=== PATIENT | female | born 1965 | race African-American/Black ===

== ENCOUNTER → 2017-08-29 | Outpatient (CLI) | payer BC ==
[~2017-08-29] MED LIST: BENEFIBER1 EAC1 PO; Z.0.LEVAQUIN500 MG PO; [UNRECOGNIZED DRUG - OTHER] PO
== END ==
LOC: MAMMO 09:02
PROVIDERS: ATTEND Internal Medicine Medical Oncology
DX: Z12.31 Encounter for screening mammogram for malignant neoplasm of breast (principal)

== ENCOUNTER → 2018-08-26 | Outpatient (CLI) | payer BC | LOC: MAMMO 09:24 | PROVIDERS: ATTEND Internal Medicine Medical Oncology | DX: Z12.31 Encounter for screening mammogram for malignant neoplasm of breast (principal) ==

== ENCOUNTER 2019-04-04 10:06 | Observation (INO) | payer BC ==
[~2019-04-04] VITALS: Ht 160 cm; Wt 78.9 kg
[2019-04-04] MEDS ORDERED: SODIUM CHLORIDE 0.9% 1000ML 1,000 ML IV STA (10:10)
[2019-04-04] MEDS ORDERED: DIAZEPAM INJ 5 MG/ML 2 ML IV ONE ×2 (10:45)
[2019-04-04] MEDS ORDERED: MECLIZINE HCL 12.5 MG TAB PO ONE ×2 (10:45)
[2019-04-04 10:47] LABS: BASOPHILS % 0.4 % (0.0-1.0); EOSINOPHILS % 0.9 % (0.0-6.0); HEMATOCRIT 40.1 % (34.2-44.1); HEMOGLOBIN 12.8 g/dL (12.0-16.0); LYMPHOCYTES # (AUTO) 1.3 (1.0-3.2); LYMPHOCYTES % 29.1 % (18.0-39.1); MEAN CORPUSCULAR HEMOGLOBIN 26.8 pg (28-32); MEAN CORPUSCULAR HGB CONC 31.9 g/dL (31-35); MEAN CORPUSCULAR VOLUME 83.9 fL (81-99); MONOCYTES # (AUTO) 0.4 (0.2-0.8); MONOCYTES % 7.7 % (4.4-11.3); NEUTROPHILS # (AUTO) 2.8 (2.1-6.9); NEUTROPHILS % 61.5 % (38.7-80.0); PLATELET COUNT 166 x10e3/uL (140-360); RED BLOOD COUNT 4.78 x10e6/uL (3.6-5.1); RED CELL DISTRIBUTION WIDTH 14.2 % (11.7-14.4)
[2019-04-04 10:54] LABS: ALANINE AMINOTRANSFERASE 13 IU/L (0-55); ALBUMIN 3.8 g/dL (3.5-5.0); ALBUMIN/GLOBULIN RATIO 1.1 (0.8-2.0); ALKALINE PHOSPHATASE 111 IU/L (40-150); ANION GAP 17.1 mmol/L (8-16); BLOOD UREA NITROGEN 11 mg/dL (7-26); BUN/CREATININE RATIO 13 (6-25); CALCIUM 9.1 mg/dL (8.4-10.2); CARBON DIOXIDE 23 mmol/L (22-29); CHLORIDE 105 mmol/L (98-107); CREATINE KINASE 108 IU/L (29-168); CREATININE, SERUM 0.82 mg/dL (0.57-1.11); EST GLOMERULAR FILTRATION RATE > 60 ML/MIN (60-); GLUCOSE 141 mg/dL (74-118); POTASSIUM 4.1 mmol/L (3.5-5.1); SODIUM 141 mmol/L (136-145)
--- NOTE | 2019-04-04 11:35 | Diagnostic Imaging Report ---
EXAMINATION: Head CT HISTORY: Dizziness 24-hour COMPARISON: None. TECHNIQUE: Multidetector axial images were obtained without contrast from the foramen magnum to the vertex . The images were reconstructed using brain and bone algorithms. Thin section brain images were reformatted into coronal and sagittal planes. Image quality: Motion/streaking artifact limits the evaluation of the skull base and posterior cranial fossa. Dose modulation, iterative reconstruction, and/or weight based adjustment of the mA/kV was utilized to reduce the radiation dose to as low as reasonably achievable. FINDINGS: Parenchyma: 1. No abnormal densities. 2. No mass or hemorrhage. No CT evidence of acute territorial vascular insult. Extra-axial spaces:No abnormal density. No extra-axial fluid collections Brain volume: Normal for age. Ventricles: No hydrocephalus or displacement. Arteries: No density suggestive of thrombus. Dural sinuses: No abnormal density. Extra-axial spaces: No abnormal density. Foramen magnum: No mass, Chiari malformation, or basilar invagination. Sella: Enlarged, partially empty, mostly CSF filled Paranasal/mastoid sinuses: Imaged portions unremarkable. Skull/Scalp: No lytic or blastic lesions. No fractures. IMPRESSION: No intracranial abnormalities. Signed by: Dr. Betty Jaime M.D. on 04/04/2019 11:31 AM
--- NOTE | 2019-04-04 11:51 | Diagnostic Imaging Report ---
EXAMINATION: CHEST SINGLE (PORTABLE) INDICATION: Dizziness, nausea/vomiting. COMPARISON: None FINDINGS: TUBES and LINES: None. LUNGS: Lungs are moderately inflated. There is mild patchy left basilar opacity, likely atelectasis. No evidence of lobar consolidation or pulmonary edema. PLEURA: No pleural effusion or pneumothorax. HEART AND MEDIASTINUM: The cardiomediastinal silhouette is unremarkable. BONES AND SOFT TISSUES: No acute osseous lesion. Soft tissues are unremarkable. UPPER ABDOMEN: No free air under the diaphragm. IMPRESSION: No acute radiographic abnormality. Signed by: Dr. Afshan Cueva MD on 04/04/2019 11:48 AM
--- NOTE | 2019-04-04 13:17 | NUR ---
H&P cc: intractable N/V and dizziness HPI 53yoF, PCP , developed intractable N/V and room spinning for 1 week. Went to PCP, given antibiotics for post nasal drip, now worsening symptoms, unable to open eyes due to severe dizziness/nausea PMH: breast CA dx 2011 s/p left mastectomy and chemo PSH; left mastectomy, hysterectomy Allergies; see emr FH/SH; ; no cig/etoh meds; see MAR ROS: no f/c/s/BERKOWITZ/cp/sob/leg pain'/skin rash/diarrhea v/s; revd PE tired appearing atraumatic ns1s2 mod bs soft nt nd no e/t skin dry flat affect a&ox3; ignacio labs/med revd A/P: 53yoF BPPV Intactable N/V Hx breast cancer Elevated BP Hyperglycemia Obesity BMI 30.8 PLAN Meclizine and fluids hba1c/lipids scd/pepcid f/u MRI brain Monitor BP Hayes Crenshaw MD, PhD.
[2019-04-04 13:37] LABS: CHOL/HDL RATIO 2.7 (3.0-3.6)
[2019-04-04] MEDS ORDERED: HYDRALAZINE HCL 20 MG/ML VIAL IV PRN (14:00)
[2019-04-04 14:45] VITALS: BP 136/75
--- NOTE | 2019-04-04 14:46 | NUR ---
PT TO THE FLOOR AT THIS TIME. PT DENIES NEEDS AT THIS TIME.
[2019-04-04 15:00] VITALS: BP 136/75
[2019-04-04] MEDS: MECLIZINE HCL 12.5 MG TAB PO SCH ×2 (15:33→21:47)
[2019-04-04] MEDS: SODIUM CHLORIDE 0.9% 1000ML 1,000 ML IV SCH (15:33)
[2019-04-04 16:38] VITALS: BP 161/93
[2019-04-04] MEDS ORDERED: FAMOTIDINE 20 MG/2 ML VIAL IV SCH (17:00)
[2019-04-04] MEDS ORDERED: [UNRECOGNIZED DRUG - REMARK] (18:53)
--- NOTE | 2019-04-04 19:10 | NUR ---
Received the pt from augusta Mccormick in the bed.stable condition.
[2019-04-04 20:57] VITALS: BP 132/80
[2019-04-04 21:00] VITALS: BP 132/80
--- NOTE | 2019-04-04 22:30 | NUR ---
Assessment done.no resp.distress.no pain voiced.ambulates with stand by assistance.had small amount of bowel movement.pt is back to bed safely.iv to right ac is patent.iv fluid running.bed locked and in lowest position.phone and call light within reach.instructed to call for assistance as needed.
[2019-04-05] VITALS: BP 140/90
[2019-04-05] MEDS: SODIUM CHLORIDE 0.9% 1000ML 1,000 ML IV SCH ×3 (00:24→12:38)
[2019-04-05 04:00] VITALS: BP 133/88
[2019-04-05] MEDS: MECLIZINE HCL 12.5 MG TAB PO SCH ×2 (06:22→13:39)
--- NOTE | 2019-04-05 07:00 | NUR ---
RECEIVED PATIENT AWAKE RESTING IN BED NO S/S OF DISTRESS. BED LOW, WHEELS LOCKED, SIDE RAILS X2. CALL LIGHT IN REACH WILL CONTINUE TO MONITOR PATIENT.
--- NOTE | 2019-04-05 07:01 | NUR ---
Bed side shift report given to the on coming Rn.stable condition.
--- NOTE | 2019-04-05 07:22 | NUR ---
D/C summary Principal Dx: IM- progress note O/N no events ROS: no f/c/s/BERKOWITZ/cp/sob/leg pain'/skin rash/diarrhea v/s; revd PE tired appearing atraumatic ns1s2 mod bs soft nt nd no e/t skin dry flat affect a&ox3; ignacio labs/med revd A/P: 53yoF BPPV Intactable N/V Hx breast cancer Elevated BP Hyperglycemia Obesity BMI 30.8 PLAN Meclizine and fluids hba1c/lipids scd/pepcid f/u MRI brain Monitor BP 04/05 f/u carotid studies; d/c home f/u pcp 1 week stable d'c>35mins Hayes Crenshaw MD, PhD.
--- NOTE | 2019-04-05 07:31 | NUR ---
PATIENTS IV LEAKING. REMOVED IV, CATHETER TIP INTACT AND PRESSURE DRESSING APPLIED.
[2019-04-05 07:42] VITALS: BP 140/87
[2019-04-05] MEDS: FAMOTIDINE 20 MG TAB PO SCH ×2 (08:05→16:12)
[2019-04-05 08:21] VITALS: BP 140/87
[2019-04-05 11:13] VITALS: BP 123/88
--- NOTE | 2019-04-05 13:44 | NUR ---
PATIENT LEFT TO RADIOLOGY AT THIS TIME VIA WHEELCHAIR
--- NOTE | 2019-04-05 14:15 | NUR ---
PATIENT BACK FROM RADIOLOGY AT THIS TIME
--- NOTE | 2019-04-05 15:03 | Diagnostic Imaging Report ---
MRI BRAIN WO HISTORY: Vertigo COMPARISON: Head CT 04/04/2019 TECHNIQUE: Sagittal T2, axial T2, axial T1, axial T2/FLAIR, axial gradient echo (or susceptibility weighted), coronal T2/FLAIR, and axial diffusion weighted MR images of the brain were obtained without contrast. DISCUSSION: Scalp/bone marrow: Unremarkable. Brain sulci: Appropriate for patient's age. Ventricles: Normal in size and configuration. No hydrocephalus. Extra-axial spaces: No masses or fluid collections. Parenchyma: Scattered T2/FLAIR hyperintense foci throughout the supratentorial white matter are likely chronic microvascular ischemic changes. Otherwise, no mass, hemorrhage, or acute vascular insults. Vessels: Normal flow voids in major arteries and veins. Sellar/Suprasellar region: No abnormalities. Craniocervical junction: Partially empty sella. Incidental findings: Small bilateral maxillary sinus retention cysts, left greater than right. IMPRESSION: 1. No acute intracranial abnormalities. 2. Mild supratentorial chronic microvascular ischemic change. Signed by: Dr. Damon Salgado M.D. on 04/05/2019 3:00 PM
[2019-04-05 15:33] VITALS: BP 175/99
[2019-04-05] MEDS ORDERED: METOPROLOL SUCCINATE 25 MG TAB XL PO NR (16:30)
[2019-04-05] MEDS ORDERED: MECLIZINE HCL12.5 MG PO (17:52)
--- NOTE | 2019-04-05 18:10 | NUR ---
PATIENT CLEARED BY DR. ZUÑIGA FOR DISCHARGE.
--- NOTE | 2019-04-05 18:30 | NUR ---
PATIENT DISCHARGED FROM FACILITY. PATIENT GATHERED ALL PERSONAL BELONGINGS, DISCHARGE INSTRUCTIONS, AND FOLLOW UP INFORMATION. PATIENT LEFT UNIT IN WHEELCHAIR AND WENT HOME VIA PRIVATE AUTO. NO SIGNS OF DISTRESS WHEN LEAVING FACILITY.
--- NOTE | 2019-04-06 00:58 | Consultation ---
DATE OF CONSULTATION: 04/05/2019 Neurology Consult Note HISTORY OF PRESENT ILLNESS: Ms. Reeder is a 53-year-old right-hand dominant woman with past medical history significant for breast cancer, in remission for seven years, admitted to [facility] under observation status on April 04, 2019, with dizziness. Approximately 10 days prior to admission, the patient presented to her primary care physician with symptoms of an upper respiratory infection. Upon general physical examination, the patient was found to have fluid behind both ears. She received an injection of methylprednisolone and was prescribed a 10-day course of amoxicillin, which was completed on the day of admission. On the morning of admission, the patient awoke with severe dizziness, which is further described as a vertiginous sensation. Ms. Reeder does not report blurred vision or other visual disturbance associated with the dizziness. She does report nausea with or without vomiting as well as bilateral tinnitus associated with the dizziness. According to the patient, the dizziness is triggered by movement, especially quick movements. Sitting/lying still improves the dizziness. However, the dizziness does not resolve with sitting/lying still. Ms. Reeder does not report a headache associated with the symptoms. She has not experienced similar symptoms previously. Ms. Reeder presented to the emergency center at [facility] on April 04, 2019, for evaluation of the above described symptoms. Upon arrival in the emergency center, the patient was afebrile with a blood pressure of 148/89 mmHg and a pulse of 61 beats per minute. The patient's neurological examination is not available for review at present. A CT of the brain without contrast was performed while the patient was in the emergency center. This study did not reveal evidence of recent large territorial ischemia or hemorrhage. Ms. Reeder was subsequently admitted to [facility] under observation status for further evaluation and treatment of her symptoms. While hospitalized, Ms. Reeder has received meclizine 25 mg by mouth every 8 hours. The patient does report mild to moderate improvement of her symptoms with this medication. REVIEW OF SYSTEMS: Nausea, vomiting, tinnitus, dizziness which is further described as a vertiginous sensation. Otherwise, a 12-point review of systems is negative. PAST MEDICAL HISTORY: Breast cancer, status post left mastectomy and chemotherapy, in remission for seven years. PAST SURGICAL HISTORY: Total hysterectomy, left ACL repair, left breast mastectomy. PAST HOSPITALIZATIONS: Surgeries/procedures as listed, allergic reaction to antibiotic, childbirth. FAMILY MEDICAL HISTORY: Hypertension, diabetes mellitus, and heart disease. SOCIAL HISTORY: Ms. Reeder is . She works for [employer]. The patient does not report current or prior tobacco, alcohol, or recreational drug use. HOME MEDICATIONS: None. HOSPITAL MEDICATIONS: Pepcid, hydralazine, and meclizine. ALLERGIES: ASPIRIN, CLINDAMYCIN, BACTRIM, VALIUM. NO KNOWN FOOD ALLERGIES. NO KNOWN ALLERGIES TO LATEX. NO KNOWN ALLERGIES TO IODINE OR OTHER CONTRAST MATERIALS. PHYSICAL EXAMINATION: VITAL SIGNS: Height 63 inches, weight 174 pounds, BMI 30.8 kg/m2, blood pressure 175/99 mmHg, pulse 72 beats per minute, respiratory rate 19 breaths per minute, and oxygen saturation 95% on room air. GENERAL: The patient is awake and alert, does not appear distressed. Obese. HEENT: Normocephalic, atraumatic. Pupils are equal, round, and reactive to light. Moist mucous membranes. A small amount of fluid is observed behind both tympanic membranes. NECK: Supple. No appreciable thyromegaly. No appreciable carotid bruits. CARDIOVASCULAR: S1, S2, regular rate and rhythm. No murmurs, rubs, or gallops. RESPIRATORY: Clear to auscultation bilaterally. No wheezes, rhonchi, or rales. EXTREMITIES: The skin is warm and dry. No clubbing, cyanosis, or edema. The posterior tibial and dorsalis pedis pulses are 2+ and symmetric. SKIN: No rashes or lesions. Negative bilateral Holland-Hallpike maneuvers. NEUROLOGIC: Memory/Attention: The patient is awake and alert, oriented to person, place, time, and situation. Cranial Nerves: Cranial nerve I - not tested. Cranial nerve II, III, IV, and - pupils are equal and round, react briskly to light (from 4 mm to 2 mm). Extraocular movements intact. No nystagmus. Cranial nerve V - sensation to light touch and pinprick is intact in the bilateral V1 through V3 distributions. Strength in the temporalis and masseter muscles is within normal limits. Cranial nerve VII - the face is symmetric as are all facial movements. Strength is within normal limits. Cranial nerve VIII - hearing is intact to finger rub bilaterally. Cranial nerve IX, X - the soft palate elevates equally and symmetrically. Cranial nerve XI - normal strength of the bilateral sternocleidomastoid and trapezius muscles. Cranial nerve XII - the tongue protrudes midline and moves symmetrically from qtvt-mr-byvu. Strength: Bulk is normal. Strength is 5/5 in the bilateral deltoids, biceps, triceps, wrist flexors and extensors, finger flexors and extensors, intrinsic hand muscles, hip flexors, knee flexors and extensors, ankle dorsiflexion and plantar flexion, and intrinsic foot muscles. Tone is normal. DTRs: Deep tendon reflexes are 2+ and symmetric at the triceps, biceps, brachioradialis, patellas, and Achilles. Plantar responses are flexor bilaterally. Sensation: Sensation is intact to light touch and pinprick in both arms and both legs. Cerebellar: Ezwtda-wmra-gthjxw and heel-osuna movements are intact without dysmetria or other impairment. Gait: Deferred. Speech: Spontaneous speech is normal without appreciable dysarthria or aphasia. Repetition is intact. Involuntary movements: None. Pronator Drift: None. LABORATORY DATA: A comprehensive metabolic panel is significant for an elevated serum glucose of 141 and a globulin of 3.6. Total cholesterol 182, triglycerides 47, LDL cholesterol 105, HDL cholesterol 68. B-natriuretic peptide 30.6. Hemoglobin A1c 5.8. The CBC with differential and platelets is unremarkable. A quantitative D-dimer is 310. DIAGNOSTIC STUDIES: Electrocardiogram on 04/04/2019: Sinus bradycardia set at 57 beats per minute. Chest x-ray on 04/04/2019: No acute radiographic abnormality. CT of the brain without contrast on 04/04/2019: On my review, there is no evidence of recent or remote large territorial ischemia, hemorrhage, mass, or mass effect. Cerebral volumes are appropriate for age. There are no findings suggestive of chronic small vessel ischemic disease. Bilateral carotid artery ultrasound with Doppler on 04/04/2019: There is no atherosclerosis in either carotid artery system. However, vessels are noted to be tortuous. Flow is antegrade in the bilateral vertebral arteries. Echocardiogram on 04/05/2019: Ejection fraction 65% to 70%. No significant valvular abnormalities are noted. MRI of the brain without contrast on 04/05/2019: On my review, there is no evidence of recent or remote large territorial ischemia, hemorrhage, mass, or mass effect. Cerebral volumes are appropriate for age. There are scattered nonspecific T2/FLAIR hyperintense foci throughout the supratentorial white matter compatible with mild chronic small vessel ischemic disease. ASSESSMENT AND PLAN: Ms. Redeer is a 53-year-old right-hand dominant woman with past medical history significant for left breast cancer, in remission for seven years, admitted to [facility] under observation status on April 04, 2019, with vertigo, nausea, vomiting, and bilateral tinnitus. The patient's neurological examination is nonfocal. Her general physical examination is significant for a small amount of fluid behind both tympanic membranes and negative bilateral Ovidio-Hallpike maneuvers. The patient's laboratory data and other diagnostic studies have been reviewed and are documented above. In my opinion, Ms. Reeder has labyrinthitis. She has received a full course of oral antibiotics for a possible bacterial inner ear infection. If her symptoms are due to a viral infection, they should gradually resolve over the next few days. In the interim, continue treatment with meclizine 25 mg by mouth every 8 hours for symptoms of vertigo and nausea with vomiting. No other diagnostic studies or treatments are recommended. The patient may be discharged to home. Jacque Valenzuela MD CP/TYLER /[id number] MTDD
--- OUTSIDE RECORDS SUMMARY | 2019-04-09 12:21 | XMS REPORT ---
Author Author [facility] Address Unknown Phone Unavailable Care Team Providers Care Coding Consultant Name Role Phone RYAN MAI Unavailable Unavailable ANATOLY OLVERA Unavailable Unavailable Payers Payer Name Policy Type Policy Number Effective Date Expiration Date Problems This patient has no known problems. Allergies, Adverse Reactions, Alerts Allergy Name Allergy Type Status Severity Reaction(s) Onset Date Inactive Date Treating Clinician Comments promethazine HCl DA Active SV 2017-05-17 00:00:00 aspirin DA Active SV 2017-05-17 00:00:00 clindamycin DA Active SV 2017-05-17 00:00:00 sulfamethoxazole DA Active U 2017-05-17 00:00:00 trimethoprim DA Active U 2017-05-17 00:00:00 Medications This patient has no known medications. Results Test Description Test Time Test Comments Text Results Atomic Results Result Comments MRI BRAIN WO 2019-04-05 14:56:00 [place] [address] Patient Name: FARHAD BUI MR #: [id number] : 1965 Age/Sex: 53/F Req #: [id number] Adm Physician: RYAN MAI MD Ordered by: RYAN MAI MD Report #: [id number] Location: MED/SURG Room/Bed: [facility] Procedure: [id number] MRI/MRI BRAIN WO Exam Date: Exam Time: REPORT STATUS: Signed MRI BRAIN WO HISTORY: Vertigo COMPARISON: Head CT 04/04/2019 TECHNIQUE: Sagittal T2, axial T2, axial T1, axial T2/FLAIR, axial gradient echo (or susceptibility weighted), coronal T2/FLAIR, and axial diffusion weighted MR images of the brain were obtained without contrast. DISCUSSION: Scalp/bone marrow: Unremarkable. Brain sulci: Appropriate for patient's age. Ventricles: Normal in size and configuration. No hydrocephalus. Extra-axial spaces: No masses or fluid collections. Parenchyma: Scattered T2/FLAIR hyperintense foci throughout the supratentorial white matter are likely chronic microvascular ischemic changes. Otherwise, n o mass, hemorrhage, or acute vascular insults. Vessels: Normal flow voids in major arteries and veins. Sellar/Suprasellar region: No abnormalities. Craniocervical junction: Partially empty sella. Incidental findings: Small bilateral maxillary sinus retention cysts, left greater than right. IMPRESSION: 1. No acute intracranial abnormalities. 2. Mild supratentorial chronic microvascular ischemic change. Signed by: Dr. Damon Salgado M.D. on 04/05/2019 3:00 PM Dictated By: DAMON SALGADO MD 99 Transcribed By: DALTON on 04/05/191499 COPY TO: RYAN AMI MD CHEST SINGLE (PORTABLE) 2019-04-04 11:47:00 [place] [address] Patient Name: FARHAD BUI MR #: [id number] : 1965 Age/Sex: 53/F Req #: [id number] Adm Physician: Ordered by: ANGELIKA JOHNSON DO Report #: [id number] Location: Room/Bed: Procedure: [id number] DX/CHEST SINGLE (PORTABLE) Exam Date: 04/04/19 Exam Time: 1103 REPORT STATUS: Signed EXAMINATION: CHEST SINGLE (PORTABLE) INDICAT ION: Dizziness, nausea/vomiting. COMPARISON: None FINDINGS: TUBES and LINES: None. LUNGS: Lungs are moderately inflated. There is mild patchy left basilar opacity, likely atelectasis. No evidence of lobar consolidation or pulmonary edema. PLEURA: No pleural effusion or pneumothorax. HEART AND MEDIASTINUM: The cardiomediastinal silhouette is unremarkable. BONES AND SOFT TISSUES: No acute osseous lesion. Soft tissues are unremarkable. UPPER ABDOMEN: No free air under the diaphragm. IMPRESSION: No acute radiographic abnormality. Signed by: Dr. Ollie Cook MD on 04/04/2019 11:48 AM Dictated By: OLLIE COOK MD 1148 Transcribed By: DALTON on 04/04/19 1148 COPY TO: ANGELIKA JOHNSON DO CT BRAIN WO 2019-04-04 11:29:00 [place] [address] Patient Name: FARHAD BUI MR #: [id number] : 1965 Age/Sex: 53/F Req #: [id number] Adm Physician: Ordered by: ANGELIKA JOHNSON DO Report #: [id number] Location: ER Room/Bed: Procedure: [id number] CT/CT BRAIN WO Exam Date: 04/04/19 Exam Time: 1108 REPORT STATUS: Signed EXAMINATION: Head CT HISTORY: Dizziness 24-hour COMPARISON: None. TECHNIQUE: Multidetector axial images were obtained without contrast from the foramen magnum to the vertex . The images were reconstructed using brain and bone algorithms. Thin section brain images were reformatted into coronal and sagittal planes. Image quality: Motion/streaking artifact limits the evaluation of the skull base and posterior cranial fossa. Dose modulation, iterative reconstruction, and/or weight based adjustment of the mA/kV was utilized to reduce the radiation dose to as low as reasonably achievable. FINDINGS: Parenchyma: 1. No abnormal densities. 2. No mass or hemorrhage. No CT evidence of acute territorial vascular insult. Extra-axial spaces:No abnormal density. No extra-axial fluid collections Brain volume: Normal for age. Ventricles: No hydrocephalus or displacement. Arteries: No density suggestive of thrombus. Dural sinuses: No abnormal density. Extra-axial spaces: No abnormal density. Foramen magnum: No mass, Chiari malformation, or basilar invagination. Sella: Enlarged, partially empty, mostly CSF filled Paranasal/mastoid sinuses: Imaged portions unremarkable. Skull/Scalp: No lytic or blastic lesions. No fractures. IMPRESSION: No intracranial abnormalities. Signed by: Dr. Marcellus Jaime M.D. on 04/04/2019 11:31 AM Dictated By: MARCELLUS JAIME MD 1131 Transcribed By: DALTON on 04/04/19 1131 COPY TO: ANGELIKA JOHNSON DO MAMMOGRAPHY DIGITAL [employer] [facility] RT 2018-08-26 10:08:00 [place] [address] Patient Name: FARHAD BUI MR #: [id number] : 1965 Age/Sex: 53/F Req #: [id number] Adm Physician: Ordered by: ANATOLY OLVERA MD Report #: [id number] Location: [facility] Room/Bed: Procedure: [id number] MG/MAMMOGRAPHY DIGITAL SCR UNI RT Exam Date: 08/26/18 Exam Time: 0939 REPORT STATUS: Signed #[id number] - MGSCRRT #UNILATERAL RIGHT DIGITAL SCREENING MAMMOGRAM WITH CAD: 08/26/2018 CLINICAL: Routine screening. Comparison is made to exams dated: 08/29/2017 mammogram and 09/13/2016 mammogram - [facility]. Current study contains 2 films. The tissue of the right breast is heterogeneously dense. This may lower the sensitivity of mammography. Current study was also evaluated with a Computer Aided Detection (CAD) system. There are post operative findings in the right breast with a scar marker present. No significant masses, calcifications, or other findings are seen in the breast. There has been no significant interval change. IMPRESSION: BENIGN There is no mammographic evidence of malignancy. A 1 year screening mammogram is recommended. The patient will be notified by letter of the results. Ernie Luevano Jr., D.O. cw/:09/08/2018 13:16:27 Physician Extender: Isabel KAY(Kranthi)(Shiraz), [facility] letter sent: Compared to Prior B9 Mammogram BI-RADS: 2 Benign Dictated By: ERNIE LUEVANO DO 1316 Transcribed By: TATO on 09/08/18 1316 COPY TO: ANATOLY OLVERA MD MAMMOGRAPHY DIGITAL SCR UNI RT [place] [address] Patient Name: FARHAD BUI MR #: [id number] : 1965 Age/Sex: 52/F Req #: [id number] Adm Physician: Ordered by: ANATOLY OLVERA MD Report #: [id number] Location: MAMMO Room/Bed: Procedure: [id number] MG/MAMMOGRAPHY DIGITAL SCR UNI RT Exam Date: 08/29/17 Exam Time: 904 REPORT STATUS: Signed #[id number] - MGSCRRT #UNILATERAL RIGHT DIGITAL SCREENING MAMMOGRAM WITH CAD: 08/29/2017 CLINICAL: Routine screening. Comparison is made to exams dated: 09/13/2016 mammogram and 09/11/2015 mammogram - [facility]. Current study contains 4 films. The tissue of the right breast is heterogeneously dense. This may lower the sensitivity of mammography. Current study was also evaluated with a Computer Aided Detection (CAD) system. There are post operative findings in the right breast with a scar marker present. No significant masses, calcifications, or other findings are seen in the breast. There has been no significant interval change. IMPRESSION: BENIGN There is no mammographic evidence of malignancy. A 1 year screening mammogram is recommended. The patient will be notified by letter of the results. Ernie Luevano Jr., D.O. cw/:09/02/2017 09:17:37 Physician Extender: Isabel KAY(Kranthi)(M), [facility] letter sent: Compared to Prior B9 Mammogram BI-RADS: 2 Benign Dictated By: ERNIE LUEVANO DO 6 Transcribed By: TATO on 09/02/17916 COPY TO: ANATOLY OLVERA MD
== END 2019-04-05 18:31 | disposition home or self-care (01) ==
LOC: ER 10:06 → ERHOLD 13:39 → MED/SURG 14:34
PROVIDERS: ADMIT Internal Medicine; ATTEND Internal Medicine
DX: H83.03 Labyrinthitis, bilateral (principal); Z85.3 Personal history of malignant neoplasm of breast; Z90.12 Acquired absence of left breast and nipple; H93.13 Tinnitus, bilateral; Z90.710 Acquired absence of both cervix and uterus; E66.9 Obesity, unspecified; Z68.30 Body mass index [BMI] 30.0-30.9, adult; R73.9 Hyperglycemia, unspecified; R03.0 Elevated blood-pressure reading, without diagnosis of hypertension; R11.2 Nausea with vomiting, unspecified
CPT/HCPCS: 36415; 70450; 70551; 71045; 80053; 80061; 82550; 82553; 83036; 83880; 84484; 85025; 85379; 93005; 93306; 93880; 99284; G0378 ×2; J3360; J7030 ×2; J8597 ×2

== ENCOUNTER → 2019-07-01 | Outpatient (CLI) | payer BC ==
[~2019-07-01] MED LIST changes: +MECLIZINE HCL12.5 MG PO; +[UNRECOGNIZED DRUG - REMARK]
--- NOTE | 2019-07-01 18:58 | Diagnostic Imaging Report ---
Bone Scan, delayed phase INDICATION: History of breast cancer in 2011; now with coccygeal pain COMPARISON: Prior bone scan 08/28/2012 REPORT: Approximately 3 hours following intravenous administration of 27 mCi of Tc-99m MDP, delayed total body images in the anterior and posterior projections were obtained. Distribution of tracer activity is unremarkable throughout the skeletal system. No abnormal accumulation of tracer is seen in the soft tissues or urinary tract. IMPRESSION: No scan evidence of metastatic bone disease. No interval change compared to prior bone scan 08/28/2012. No acute osteoblastic process is seen in the coccyx or inferior sacrum to suggest an etiology of the patient's pain. Signed by: Dr. Isabel Spencer M.D. on 07/01/2019 6:55 PM
== END ==
LOC: NM 11:23
PROVIDERS: ATTEND Internal Medicine Medical Oncology
DX: C50.912 Malignant neoplasm of unspecified site of left female breast (principal); M53.3 Sacrococcygeal disorders, not elsewhere classified
CPT/HCPCS: 78306; A9503

== ENCOUNTER → 2019-08-31 | Outpatient (CLI) | payer BC | LOC: MAMMO 12:47 | PROVIDERS: ATTEND Internal Medicine Medical Oncology | DX: Z12.31 Encounter for screening mammogram for malignant neoplasm of breast (principal) ==

== ENCOUNTER → 2020-09-01 | Outpatient (CLI) | payer OTHER | LOC: MAMMO 09:27 | PROVIDERS: ATTEND Internal Medicine Medical Oncology | DX: Z12.31 Encounter for screening mammogram for malignant neoplasm of breast (principal) ==

== ENCOUNTER → 2021-02-09 | Outpatient (CLI) | payer OTHER | LOC: MAMMO 09:39 | PROVIDERS: ATTEND Internal Medicine Medical Oncology | DX: R59.9 Enlarged lymph nodes, unspecified (principal); Z85.3 Personal history of malignant neoplasm of breast ==

== ENCOUNTER → 2022-02-08 | Outpatient (CLI) | payer OTHER | LOC: MAMMO 11:03 | PROVIDERS: ATTEND Internal Medicine Medical Oncology | DX: Z12.31 Encounter for screening mammogram for malignant neoplasm of breast (principal) ==

== ENCOUNTER → 2024-02-11 | Outpatient (REF) | payer BC | LOC: MAMMO 09:51 | PROVIDERS: ATTEND Internal Medicine Medical Oncology | DX: Z12.31 Encounter for screening mammogram for malignant neoplasm of breast (principal) ==

== ENCOUNTER → 2025-02-10 | Outpatient (REF) | payer BC | LOC: MAMMO 09:57 | PROVIDERS: ATTEND Internal Medicine Medical Oncology | DX: Z12.31 Encounter for screening mammogram for malignant neoplasm of breast (principal) ==